=== PATIENT | male | born 1985 | race Caucasian/White ===

== ENCOUNTER 2017-06-25 22:39 | Emergency (ER) | payer BC, OTHER ==
--- NOTE | 2017-06-25 23:21 | RAD ---
LEFT HAND THREE VIEWS: 06/25/17 A metallic BB is seen embedded in the soft tissues on the palmar aspect of the fifth metacarpal head. No bony fractures were seen. IMPRESSION: Foreign body as noted. POS: HOME
[2017-06-25] MEDS ORDERED: Cephalexin 500 MG CAP ONE (23:45)
[2017-06-25] MEDS ORDERED: Bacitracin Zinc 1 Packet ONE (23:50)
== END 2017-06-26 00:12 | disposition home or self-care (01) ==
LOC: BURERS 22:39
DX: S61.442A Puncture wound with foreign body of left hand, initial encounter (principal); W34.010A Accidental discharge of airgun, initial encounter
CPT/HCPCS: 12031